=== PATIENT | male | born 1945 | race Caucasian/White ===

== ENCOUNTER 2017-08-08 13:57 | Inpatient (IN) ==
[2017-08-08 14:55] LABS: MANUAL DIFF NEEDED? NO
[2017-08-08 15:06] LABS: BASO% 0.2 % (0.0-0.8); EOS% 1.7 % (0.0-10.0); HEMATOCRIT 40.4 % (42.0-52.0); HEMOGLOBIN 13.5 g/dL (14.0-18.0); LYMPH% 17.1 % (20.5-51.1); MCH 29.9 PG (27-31); MCHC 33.4 g/dL (33-37); MCV 89.4 FL (81-99); MONO# 0.89 X1000 (0.11-0.59); MONO% 15.2 % (1.7-9.3); MPV 11.4 FL (7.4-10.4); NEUT% 65.8 % (42.2-75.2); PLT 154 X1000 (130-400); RBC 4.52 XMIL (4.7-6.1)
[2017-08-08 15:26] LABS: AGAP 14; ALBUMIN 3.6 g/dL (3.5-5.0); ALKALINE PHOSPHATASE 63 U/L (32-122); AMYLASE 111 U/L (20-200); BUN 12 mg/dL (8-22); CALCIUM 8.9 mg/dL (8.8-10.2); CHLORIDE 94 mmol/L (98-107); COSMO 263; GOT 18 U/L (10-34); GPT 16 U/L (10-44); LIPASE 72 U/L (13-60); POTASSIUM 4.4 mmol/L (3.5-5.1); SODIUM 131 mmol/L (136-145); TCO2 23 mmol/L (25-35); TOTAL BILIRUBIN 0.37 mg/dL (0.20-1.00); TOTAL PROTEIN 6.7 g/dL (6.3-8.3)
--- NOTE | 2017-08-08 15:51 | Diag Imaging Result Doc PS360 ---
CT ABDOMEN/PELVIS W/O CONTRAST - 08/08/2017 INDICATION: abd pain TECHNIQUE: A CT dose reduction protocol was used. COMPARISON: None FINDINGS: There is some multifocal linear atelectasis in the lung bases. Heart size is borderline. There are several scattered small cysts of varying density in the kidneys bilaterally, mostly simple fluid densities. No radiodense renal stones. No hydronephrosis or hydroureter. There are cholecystectomy clips. There are also extensive surgical suture lines of small bowel in the lower abdomen. There is advanced peripheral vascular disease of the arteries of the pelvis and thighs. Urinary bladder, prostate, and rectum are normal. No bowel obstruction or inflammation. No free air or free fluid. There are age-indeterminate compression fractures in the spine. This involves T12 and L4, with about 50% loss of height at these levels. IMPRESSION: No specific acute disease. Electronically signed by Lonnie Bailey 08/08/2017 3:48 PM
[2017-08-08 16:11] LABS: URINE CULTURE NEEDED? NO; URINE MICRO REVIEW NEEDED? NO; URINE SOURCE CATH
[2017-08-08 16:18] LABS: BILIRUBIN URINE NEGATIVE (NEGATIVE); BLOOD URINE NEGATIVE (NEGATIVE); COLOR YELLOW; GLUCOSE URINE NEGATIVE (NEGATIVE); LEUKOCYTES URINE NEGATIVE (NEGATIVE); NITRITE URINE NEGATIVE (NEGATIVE); PH URINE 6.5; PROTEIN URINE 30 mg/dL (NEGATIVE); SP GRAVITY URINE 1.014; TURBIDITY URINE CLEAR (CLEAR); UROBILINOGEN URINE NORMAL (NORMAL)
[2017-08-08 16:20] LABS: UR EPITHELIAL CELLS <10 /HPF (<10); URINE BACTERIA NEGATIVE /HPF; URINE RBC <10 /HPF (<10); URINE WBC <10 /HPF (<10)
--- NOTE | 2017-08-08 16:34 | Diag Imaging Result Doc PS360 ---
CHEST-2 VIEWS - 08/08/2017 INDICATION: Possible CHF TECHNIQUE: COMPARISON: 05/11/2016 FINDINGS: Stable cardiomegaly. Pulmonary vascularity is top normal. There is some stable bibasilar atelectasis right greater than left. No focal infiltrates, pneumothorax, or pleural effusion. IMPRESSION: Cardiomegaly. No acute disease. Electronically signed by Lonnie Bailey 08/08/2017 4:31 PM
[2017-08-08] MEDS ORDERED: LASIX IV ONE (17:18)
[2017-08-08] MEDS ORDERED: TYLENOL PO PRN (20:32)
[2017-08-08] MEDS ORDERED: PNEUMOVAX 23 IM ONE (22:26)
[2017-08-09] MEDS ORDERED: LOPRESSOR PO ONE (05:26)
[2017-08-09] MEDS ORDERED: LANOXIN PO ONE (05:26)
[2017-08-09 06:40] LABS: MANUAL DIFF NEEDED? NO
[2017-08-09 06:52] LABS: BASO% 0.2 % (0.0-0.8); EOS# 0.19 X1000 (0.0-0.7); EOS% 2.1 % (0.0-10.0); HEMATOCRIT 44.6 % (42.0-52.0); HEMOGLOBIN 14.6 g/dL (14.0-18.0); IMM GRAN# 0.02 X1000 (0.0-0.04); IMM GRAN% 0.2 % (0.0-0.5); LYMPH# 1.49 X1000 (1.2-3.4); LYMPH% 16.4 % (20.5-51.1); MCH 29.2 PG (27-31); MCHC 32.7 g/dL (33-37); MCV 89.2 FL (81-99); MONO# 1.39 X1000 (0.11-0.59); MONO% 15.3 % (1.7-9.3); MPV 11.4 FL (7.4-10.4); NEUT% 65.8 % (42.2-75.2); PLT 156 X1000 (130-400)
[2017-08-09 07:02] LABS: AGAP 16; BUN 15 mg/dL (8-22); CALCIUM 9.4 mg/dL (8.8-10.2); CHLORIDE 92 mmol/L (98-107); COSMO 275; POTASSIUM 3.6 mmol/L (3.5-5.1); SODIUM 137 mmol/L (136-145); TCO2 29 mmol/L (25-35)
[2017-08-09] MEDS ORDERED: ELIQUIS PO SCH (09:00)
[2017-08-09] MEDS: PRILOSEC PO SCH (10:00)
[2017-08-09] MEDS: CARAFATE LIQUID PO SCH ×3 (10:00→22:20)
[2017-08-09] MEDS: LASIX PO SCH (10:00)
[2017-08-09] MEDS: SYNTHROID PO SCH (10:00)
[2017-08-09] MEDS: FLOMAX PO SCH (10:00)
[2017-08-09] MEDS: AZULFIDINE PO SCH ×3 (10:01→22:20)
[2017-08-09] MEDS ORDERED: NS 500 ML IV ONE (10:17)
[2017-08-09] MEDS: HUMULIN R SUBQ SCH ×3 (12:52→22:21)
[2017-08-09] MEDS ORDERED: CITRATE OF MAGNESIA PO ONE ×3 (18:02→22:45)
[2017-08-09] MEDS: LOPRESSOR PO SCH (22:20)
[2017-08-09] MEDS: LANOXIN PO SCH (22:20)
[2017-08-10] MEDS: AZULFIDINE PO SCH ×4 (03:35→23:13)
[2017-08-10] MEDS: CARAFATE LIQUID PO SCH ×4 (03:35→23:13)
[2017-08-10] MEDS: HUMULIN R SUBQ SCH ×4 (06:13→23:20)
[2017-08-10] MEDS: PRILOSEC PO SCH (06:14)
[2017-08-10] MEDS: SYNTHROID PO SCH ×2 (06:14→06:15)
[2017-08-10 07:30] LABS: AGAP 18; BUN 15 mg/dL (8-22); CALCIUM 10.2 mg/dL (8.8-10.2); CHLORIDE 87 mmol/L (98-107); COSMO 271; POTASSIUM 3.8 mmol/L (3.5-5.1); SODIUM 134 mmol/L (136-145); TCO2 29 mmol/L (25-35)
[2017-08-10] MEDS ORDERED: DIPRIVAN 1% ONE (08:29)
[2017-08-10] MEDS ORDERED: XYLOCAINE-MPF 2% ONE (08:29)
[2017-08-10] MEDS: LASIX PO SCH (08:36)
[2017-08-10] MEDS: FLOMAX PO SCH (08:36)
[2017-08-10] MEDS: LOPRESSOR PO SCH ×2 (08:36→23:13)
[2017-08-10] MEDS: LANOXIN PO SCH (08:37)
[2017-08-10] MEDS: ZOFRAN IV PRN (17:27)
[2017-08-10] MEDS: MIRALAX PO SCH (23:13)
[2017-08-11] MEDS: AZULFIDINE PO SCH ×5 (03:35→21:45)
[2017-08-11] MEDS: ZOFRAN IV PRN ×2 (03:35→07:58)
[2017-08-11] MEDS: CARAFATE LIQUID PO SCH ×5 (03:35→21:45)
[2017-08-11] MEDS ORDERED: NS 1,000 ML IV SCH (04:06)
--- NOTE | 2017-08-11 06:25 | EKG Report ---
Test Performed on : 08/08/2017 1:58:09 PM Test Reason : reordered/hx afib Blood Pressure : / mmHG Vent. Rate : 079 BPM Atrial Rate : 052 BPM P-R Int : 000 ms QRS Dur : 096 ms QT Int : 350 ms P-R-T Axes : 000 -51 070 degrees QTc Int : 401 ms Atrial fibrillation. Left anterior fascicular block Abnormal ECG When compared with ECG of 18-JUL-2017 18:27, No significant change was found Unconfirmed Result
[2017-08-11] MEDS: PRILOSEC PO SCH (06:40)
[2017-08-11] MEDS: SYNTHROID PO SCH (06:40)
[2017-08-11] MEDS: HUMULIN R SUBQ SCH ×4 (06:41→22:33)
[2017-08-11 07:02] LABS: EOS# 0.02 X1000 (0.0-0.7); EOS% 0.1 % (0.0-10.0); HEMATOCRIT 44.1 % (42.0-52.0); HEMOGLOBIN 14.8 g/dL (14.0-18.0); IMM GRAN# 0.03 X1000 (0.0-0.04); IMM GRAN% 0.2 % (0.0-0.5); LYMPH# 0.54 X1000 (1.2-3.4); LYMPH% 3.5 % (20.5-51.1); MANUAL DIFF NEEDED? YES; MCH 29.7 PG (27-31); MCHC 33.6 g/dL (33-37); MCV 88.4 FL (81-99); MONO# 1.52 X1000 (0.11-0.59); MONO% 9.7 % (1.7-9.3); MPV 11.5 FL (7.4-10.4); NEUT% 86.5 % (42.2-75.2); PLT 203 X1000 (130-400); RBC 4.99 XMIL (4.7-6.1)
[2017-08-11 07:48] LABS: BANDS 4 % (0-1); LYMPHS 10 % (21-51); MONO 4 % (1-9)
[2017-08-11 07:56] LABS: AGAP 18; BUN 30 mg/dL (8-22); CALCIUM 9.4 mg/dL (8.8-10.2); CHLORIDE 82 mmol/L (98-107); COSMO 274; POTASSIUM 4.2 mmol/L (3.5-5.1); SODIUM 132 mmol/L (136-145); TCO2 32 mmol/L (25-35)
[2017-08-11] MEDS: FLOMAX PO SCH (08:57)
[2017-08-11] MEDS: LASIX PO SCH (08:57)
[2017-08-11] MEDS: LANOXIN PO SCH (08:58)
[2017-08-11] MEDS: LOPRESSOR PO SCH ×2 (08:58→22:35)
[2017-08-11] MEDS: MIRALAX PO SCH ×2 (08:58→21:33)
--- NOTE | 2017-08-11 10:25 | Diag Imaging Result Doc PS360 ---
EXAM: ABDOMEN FLAT/UPRIGHT INDICATION: vomiting TECHNIQUE: 3 views COMPARISON: None. FINDINGS: There is a metallic bowel staple line is noted. There are multiple distended loops of bowel containing gas. Bowel obstruction cannot be excluded in the right clinical scenario. There is no evidence of large volume free abdominal gas. Cholecystectomy clips are noted. IMPRESSION: Gaseous distention of multiple bowel loops. Bowel obstruction cannot be excluded. Electronically signed by Good Eugene 08/11/2017 10:23 AM
[2017-08-11] MEDS: NS 1,000 ML IV SCH ×2 (10:45→16:37)
[2017-08-11] MEDS: REGLAN IV SCH ×3 (11:02→23:44)
[2017-08-11] MEDS ORDERED: DULCOLAX PR ONE (11:40)
[2017-08-11] MEDS ORDERED: FLEET ENEMA PR SCH (11:45)
[2017-08-11] MEDS: KEFZOL 1 GM/D5W 1 GM/50 ML IVPB IV SCH ×2 (12:49→20:02)
[2017-08-11] MEDS ORDERED: CALMOSEPTINE OINTMENT TOP PRN (19:46)
[2017-08-11] MEDS ORDERED: HEPARIN SUBQ SCH (21:00)
[2017-08-11] MEDS: FLEET ENEMA PR SCH (22:32)
[2017-08-12] MEDS: NS 1,000 ML IV SCH ×3 (02:53→17:20)
[2017-08-12] MEDS: CARAFATE LIQUID PO SCH ×4 (03:16→20:08)
[2017-08-12] MEDS: AZULFIDINE PO SCH ×4 (03:16→20:08)
[2017-08-12] MEDS: REGLAN IV SCH (05:20)
[2017-08-12] MEDS: KEFZOL 1 GM/D5W 1 GM/50 ML IVPB IV SCH ×3 (05:21→20:07)
[2017-08-12 06:10] LABS: MANUAL DIFF NEEDED? NO
[2017-08-12 06:14] LABS: BASO% 0.1 % (0.0-0.8); EOS# 0.11 X1000 (0.0-0.7); EOS% 0.8 % (0.0-10.0); HEMATOCRIT 40.1 % (42.0-52.0); LYMPH# 1.13 X1000 (1.2-3.4); LYMPH% 8.2 % (20.5-51.1); MCH 29.4 PG (27-31); MCHC 32.4 g/dL (33-37); MCV 90.7 FL (81-99); MONO# 2.19 X1000 (0.11-0.59); MONO% 15.9 % (1.7-9.3); MPV 11.4 FL (7.4-10.4); PLT 167 X1000 (130-400); RBC 4.42 XMIL (4.7-6.1)
[2017-08-12] MEDS: HUMULIN R SUBQ SCH ×4 (06:21→20:16)
[2017-08-12] MEDS: SYNTHROID PO SCH (06:22)
[2017-08-12] MEDS: PRILOSEC PO SCH (06:22)
[2017-08-12 06:30] LABS: AGAP 11; BUN 25 mg/dL (8-22); CALCIUM 8.2 mg/dL (8.8-10.2); CHLORIDE 96 mmol/L (98-107); COSMO 278; POTASSIUM 3.9 mmol/L (3.5-5.1); SODIUM 136 mmol/L (136-145); TCO2 29 mmol/L (25-35)
--- NOTE | 2017-08-12 08:49 | Diag Imaging Result Doc PS360 ---
EXAM: FLAT/UPRIGHT ABD/1 VIEW CHEST HISTORY: Partial obstruction TECHNIQUE: Three views COMPARISON: 08/11/2017 FINDINGS: The lungs are well expanded. No consolidation. No free air beneath the diaphragm. The gallbladder has been removed. There are sutures in the mid abdomen. There is air in the small bowel and colon. The bowel loops are less distended on the current exam. Mild scoliosis. IMPRESSION: Mild interval improvement. Electronically signed by Walter Mcclellan 08/12/2017 8:46 AM
[2017-08-12] MEDS: FLOMAX PO SCH (08:50)
[2017-08-12] MEDS: LANOXIN PO SCH (08:50)
[2017-08-12] MEDS: LASIX PO SCH (08:50)
[2017-08-12] MEDS: LOPRESSOR PO SCH ×2 (08:51→20:08)
[2017-08-12] MEDS: MIRALAX PO SCH (08:58)
[2017-08-12] MEDS: REGLAN PO SCH (20:08)
[2017-08-12] MEDS: FLEET ENEMA PR SCH (20:15)
[2017-08-12 22:46] LABS: CELIAC DISEASE PROFILE SEE COMMENTS; TISSUE TRANSGLUTAMINASE IGA SEE COMMENTS
[2017-08-13] MEDS: CARAFATE LIQUID PO SCH ×3 (03:00→15:16)
[2017-08-13] MEDS: AZULFIDINE PO SCH ×3 (03:00→15:16)
[2017-08-13] MEDS: FLEET ENEMA PR SCH (03:04)
[2017-08-13] MEDS: NS 1,000 ML IV SCH ×2 (04:43→13:51)
[2017-08-13] MEDS: KEFZOL 1 GM/D5W 1 GM/50 ML IVPB IV SCH ×2 (04:43→13:51)
[2017-08-13] MEDS: HUMULIN R SUBQ SCH ×2 (06:03→13:37)
[2017-08-13] MEDS: PRILOSEC PO SCH (06:04)
[2017-08-13] MEDS: SYNTHROID PO SCH (06:05)
[2017-08-13 06:49] LABS: AGAP 7; BUN 13 mg/dL (8-22); CALCIUM 7.6 mg/dL (8.8-10.2); CHLORIDE 98 mmol/L (98-107); COSMO 269; POTASSIUM 3.3 mmol/L (3.5-5.1); SODIUM 134 mmol/L (136-145); TCO2 29 mmol/L (25-35)
[2017-08-13] MEDS ORDERED: KLOR-CON PO ONE (07:51)
[2017-08-13] MEDS: LOPRESSOR PO SCH (08:18)
[2017-08-13] MEDS: MIRALAX PO SCH (08:18)
[2017-08-13] MEDS: REGLAN PO SCH (08:18)
[2017-08-13] MEDS: LANOXIN PO SCH (08:18)
[2017-08-13] MEDS: LASIX PO SCH (08:18)
[2017-08-13] MEDS: FLOMAX PO SCH (08:18)
[2017-08-13] MEDS ORDERED: FLUZONE QUAD 2017-2018 SYRINGE IM ONE (12:47)
[2017-08-13 14:04] VITALS: BP 101/61
== END 2017-08-13 16:31 ==
LOC: ED 13:57 → SUATTDRO 20:44 → 3N 20:44
PROVIDERS: ATTEND Internal Medicine

== ENCOUNTER 2018-12-09 17:42 | Inpatient (IN) ==
--- NOTE | 2018-12-09 19:18 | Diag Imaging Result Doc PS360 ---
EXAM: XRAY HIP W/PELVIS BILAT 3-4VWS INDICATION: fall TECHNIQUE: 5 views COMPARISON: None. FINDINGS: There is no discrete fracture, dislocation, or significant intrinsic osseous lesion. The hip joint spaces are preserved. There is atherosclerotic calcification at the thighs. IMPRESSION: No evidence of acute osseous abnormality. Electronically signed by Good Eugene 12/09/2018 7:16 PM
--- NOTE | 2018-12-09 19:32 | PROVIDER DOCUMENTATION ---
HPI-Musculoskeletal Pain/Inj - GENERAL Chief Complaint: Fall Stated Complaint: FALL Time Seen by Provider: 12/09/18 18:13 Source: patient - HX OF PRESENT ILLNESS-MUSKULOSKELTAL Nature of Presenting Problem: Patient is a 73 yowm who [facility]. Pt states that he fell out of bed and landed on buttocks. He complains of lower back pain. Denies head injury. Staff at [facility] reports mental status change since fall, pt is a&o and answering questions appropriately. Neurologically intact at this time. Quality of Pain: reports: aching Onset/Duration: just prior to arrival Timing: still present Modifying Factors: improves with: nothing Any recent injury?: Yes Locality of Occurance: Home - FALL INJURY Location of Pain/Injury: reports: back Pain Radiation: reports: no radiation Reason for Fall: reports: slipped Symptoms prior to fall:: reports: none Loss of Consciousness: no loss of consciousness - BACK & NECK PAIN/INJURY Back/Neck Pain Location: reports: lumbar spine, sacrum Review of Systems - Adult - REVIEW OF SYSTEMS - ADULT Constitutional: reports: no symptoms reported Eyes: reports: no symptoms reported Ears, Nose, Mouth & Throat: reports: no symptoms reported Cardiovascular: reports: no symptoms reported Respiratory: reports: no symptoms reported Gastrointestinal: reports: no symptoms reported Genitourinary: reports: no symptoms reported Musculoskeletal: reports: back pain Integumentary: reports: no symptoms reported Neurological: reports: no symptoms reported Psychiatric: reports: no symptoms reported Endocrine: reports: no symptoms reported Hematologic/Lymphatic: reports: no symptoms reported Allergic/Immunologic: reports: no symptoms reported All Other Systems: Reviewed and Negative Past History - Adult - PAST MEDICAL HISTORY-ADULT Review of Records: reports: Old Records Reviewed, Nursing Assessment Review, Medications Reviewed, Social history reviewed & non-contributory. Cardiovascular: reports: A-Fib, HTN, hyperlipidemia Respiratory: reports: denies history Gastrointestinal: reports: cancer (colorectal), Crohn's Genitourinary: reports: other (BPH) Musculoskeletal: reports: denies history Neurological: reports: dementia Psychiatric: reports: denies history Endocrine/Immune: reports: thyroid disorder - PRIOR SURGERIES/PROCEDURES Surgical/Procedure History: reports: reviewed, not pertinent, other (Colon surgery.) - IMMUNIZATION STATUS Childhood Immunizations: See Nurse Assessment Flu Vaccine: See Nurse Assessment - FAMILY HISTORY Family History: reviewed, not pertinent - SOCIAL HISTORY Smoking: denies Physical Exam-Injury Related - Physical Exam-Injury Related Initial Vital Signs Reviewed: Yes General Appearance: alert, no apparent distress. negative: lethargic, slow to respond Eyes: PERRL/EOMI, pink conjunctivae. negative: anisocoria Head, Ears, Nose, Mouth & Throat: normocephalic/atraumatic, moist mucous membranes, normal ENT inspection, TMs normal Neck: non-tender, full range of motion, supple, normal inspection Respiratory: chest non-tender, lungs clear, normal breath sounds, no pleuratic chest pain, no respiratory distress, no accessory muscle use Cardiovascular: normal peripheral pulses, regular rate, rhythm, no gallop, no murmur Abdominal Exam: normal bowel sounds, non tender, soft Male Genitalia: deferred Rectal Exam: deferred Hemoccult Exam: deferred Back Exam: lordosis, vertebral tenderness (Lumbar spine). negative: ecchymosis Extremity: normal range of motion, non-tender, normal inspection, pelvis stable . negative: deformity, erythema, inflammation, joint effusion Integumentary: normal color, warm/dry. negative: diaphoresis, ecchymosis, jaundice, mottled, pallor Neurologic: grossly normal, no motor/sensory deficits Psych/Mental Status: normal mood/affect, normal thought content, normal thought process, oriented x 3 - Glascow Coma Score Best Eye Response (Gordo): (4) open spontaneously Best Verbal Response (Gordo): (5) oriented Best Motor Response (Gordo): (6) obeys commands Progress - PLAN OF CARE/RESULTS Progress/Plan/Lab Results: Vital Signs - 8 hr 12/09/18 18:45 12/09/18 21:32 12/09/18 21:33 Temperature 99.9 F H Pulse Rate 96 H 102 H 96 H Respiratory Rate 20 Blood Pressure 140/88 153/74 O2 Sat by Pulse Oximetry 96 94 L 90 L 12/09/18 21:40 12/09/18 21:50 12/09/18 22:00 Temperature Pulse Rate 100 H 94 H 104 H Respiratory Rate Blood Pressure O2 Sat by Pulse Oximetry 89 L 90 L 90 L 12/09/18 22:02 12/09/18 22:10 12/09/18 22:29 Temperature Pulse Rate 104 H 101 H 117 H Respiratory Rate 27 H Blood Pressure 144/91 O2 Sat by Pulse Oximetry 90 L 91 L 90 L 12/09/18 22:30 12/09/18 22:40 12/09/18 22:50 Temperature Pulse Rate 102 H 102 H 96 H Respiratory Rate 23 23 Blood Pressure O2 Sat by Pulse Oximetry 92 L 92 L 93 L 12/09/18 23:00 12/09/18 23:10 12/09/18 23:20 Temperature Pulse Rate 98 H 109 H 107 H Respiratory Rate 23 31 H 25 H Blood Pressure O2 Sat by Pulse Oximetry 93 L 95 94 L 12/09/18 23:30 12/09/18 23:40 12/09/18 23:42 Temperature 99.7 F H Pulse Rate 102 H 108 H Respiratory Rate 25 H 27 H Blood Pressure O2 Sat by Pulse Oximetry 93 L 93 L 12/09/18 23:50 12/10/18 00:00 12/10/18 00:10 Temperature Pulse Rate 107 H 125 H 117 H Respiratory Rate 26 H 28 H Blood Pressure O2 Sat by Pulse Oximetry 93 L 94 L 93 L 12/10/18 00:28 12/10/18 00:30 12/10/18 00:40 Temperature Pulse Rate 101 H 113 H 102 H Respiratory Rate 19 29 H 26 H Blood Pressure O2 Sat by Pulse Oximetry 90 L 92 L 92 L 12/10/18 00:50 12/10/18 01:00 12/10/18 01:10 Temperature Pulse Rate 111 H 111 H 108 H Respiratory Rate 24 23 20 Blood Pressure O2 Sat by Pulse Oximetry 93 L 92 L 94 L Laboratory Results - last 24 hr 12/09/18 12/09/18 12/09/18 21:15 21:15 21:15 WBC 7.27 RBC 4.52 L Hgb 12.2 L Hct 38.1 L MCV 84.3 MCH 27.0 MCHC 32.0 L RDW Std Deviation 14.4 Plt Count 143 MPV 10.6 H Immature Gran % (Auto) 0.3 Neut % (Auto) 65.6 Lymph % (Auto) 16.5 L Long % (Auto) 17.1 H Eos % (Auto) 0.4 Baso % (Auto) 0.1 Immature Gran # (Auto) 0.02 Neut # (Auto) 4.77 Lymph # (Auto) 1.20 Long # (Auto) 1.24 H Eos # (Auto) 0.03 Baso # (Auto) 0.01 Specimen Type Sample Site pH pCO2 pO2 HCO3 Base Excess Oxyhemoglobin ABG O2 Sat (Calculated) ABG O2 Saturation ABG Carboxyhemoglobin ABG Methemoglobin Cain Test A-a O2 Difference Total Hemoglobin Lactate Liter Flow Blood Gas Modality FiO2 % Sodium 134 L Potassium 3.6 Chloride 92 L Carbon Dioxide 28 Anion Gap 14 BUN 12 Creatinine 0.7 Estimated GFR/1.73 m2 > 60 BUN/Creatinine Ratio 17 Glucose 127 H Calculated Osmolality 270 Calcium 8.5 L Total Bilirubin 0.34 AST 17 ALT 10 Alkaline Phosphatase 70 Troponin T < 0.010 Total Protein 6.7 Albumin 3.5 Globulin 3.2 Albumin/Globulin Ratio 1.1 Urine Source Urine Color Urine Turbidity Urine pH Ur Specific Garnett Urine Protein Ur Glucose (Stick) Ur Ketones (Stick) Urine Blood Urine Nitrite Urine Bilirubin Urobilinogen Dipstick Urine Leukocytes Urine WBC (Auto) Urine RBC (Auto) U Epithel Cells (Auto) Urine Bacteria (Auto) 12/10/18 12/10/18 01:11 01:28 WBC RBC Hgb Hct MCV MCH MCHC RDW Std Deviation Plt Count MPV Immature Gran % (Auto) Neut % (Auto) Lymph % (Auto) Long % (Auto) Eos % (Auto) Baso % (Auto) Immature Gran # (Auto) Neut # (Auto) Lymph # (Auto) Long # (Auto) Eos # (Auto) Baso # (Auto) Specimen Type ARTERIAL Sample Site L RADIAL pH 7.51 H pCO2 37 pO2 81 HCO3 29.7 H Base Excess 6.2 H Oxyhemoglobin 93.4 L ABG O2 Sat (Calculated) 15.2 ABG O2 Saturation 97.5 ABG Carboxyhemoglobin 3.00 H ABG Methemoglobin 1.2 Cain Test YES A-a O2 Difference 158.0 Total Hemoglobin 11.5 Lactate 0.90 Liter Flow 5.0 Blood Gas Modality CANNULA FiO2 % 40.0 Sodium Potassium Chloride Carbon Dioxide Anion Gap BUN Creatinine Estimated GFR/1.73 m2 BUN/Creatinine Ratio Glucose Calculated Osmolality Calcium Total Bilirubin AST ALT Alkaline Phosphatase Troponin T Total Protein Albumin Globulin Albumin/Globulin Ratio Urine Source CLEAN CATCH Urine Color YELLOW Urine Turbidity CLEAR Urine pH 6.0 Ur Specific Garnett 1.023 Urine Protein 300 A Ur Glucose (Stick) NEGATIVE Ur Ketones (Stick) NEGATIVE Urine Blood SMALL A Urine Nitrite NEGATIVE Urine Bilirubin NEGATIVE Urobilinogen Dipstick NORMAL Urine Leukocytes NEGATIVE Urine WBC (Auto) <10 Urine RBC (Auto) <10 U Epithel Cells (Auto) <10 Urine Bacteria (Auto) NEGATIVE Orders Category Date Time Status Cardiac Monitoring DIRECTED Care 12/09/18 22:55 Active Neurological Check ORDERED Care 12/09/18 22:55 Active Saline Loc NOW Care 12/09/18 20:37 Active Straight Catheterization ORDERED Care 12/10/18 01:12 Active CHEST-2 VIEWS [RAD] Stat Exams 12/09/18 22:[address] HEAD W/O CONTRAST [CT] Stat Exams 12/10/18 00:[address] HEAD/C-SPINE W/O CONTRAST [CT] Stat Exams 12/09/18 18:[address] LUMBAR SPINE W/O CONTRAST [CT] Stat Exams 12/09/18 18:44 Completed XRAY HIP W/PELVIS BILAT 3-4VWS [RAD] Stat Exams 12/09/18 18:52 Completed ABG [RESP] Routine Lab 12/10/18 01:28 Completed CBC WITH DIFF [HEME] Stat Lab 12/09/18 21:15 Completed COMPREHENSIVE METABOLIC PANEL [CHEM] Stat Lab 12/09/18 21:15 Completed INFLUENZA SCREEN A/B Routine Lab 12/10/18 01:25 Received PROTIME WITH INR [COAG] Urgent Lab 12/10/18 01:27 Ordered PTT [COAG] Urgent Lab 12/10/18 01:27 Ordered TROPONIN T Stat Lab 12/09/18 21:15 Completed UA NIMS W/REFLEX CULT [URINALYSIS] Stat Lab 12/10/18 01:11 Completed 0.9% Sodium Chloride Inj [Ns] 1,000 ml Med 12/10/18 01:28 Active IV 70 mls/hr CefTRIAXONE [Rocephin] 1 gm Med 12/10/18 01:30 Active 0.9% Sodium Chloride Inj [Ns] 50 ml IV Q24H EKG [EKG] Stat Ther 12/09/18 20:37 Ordered Transfer/Admit Order [TRANSFER] Routine Transfer 12/10/18 01:[address] Renner regarding pt case. reviewed patient's head CT and recommends either admitting pt for additional imaging in 6-8 hours or holding pt in ED for additional imaging. Will call [facility] after lab work results. Anemia stable as compared to prior results. Dr. Mathews paged regarding admission. Spoke with Dr. Mathews who recommends repeat head CT [place] [address]30. Dr. Mathews evaluated pt. Spoke with Dr. Mathews regarding repeat head CT. Md states he will admit pt. Dr. Mathews reviewed patient's chest x ray and is aware of patient's low 02 sats. Result Diagrams: 12/09/18 21:15 12/09/18 21:15 - XRAY 1 XRAY Study: Chest (Questionable RLL infiltrate. Over read performed by Dr. Renner.) - CT/MRI 1 CT Study: Lumbar Spine ([facility] [address] , [address], [place] [address] Department of Imaging Patient: KAYLEIGH MOSQUEDA Date : 12/09/18#: [id number] : 1945DM Status: REG ERAcct#: [id number] Age/Sex: 73/MRoom/Bed: Loc: ED Ordering Physician: Janny Durbin Family Physician: Erik Fontenot Reason for Procedure: fall, lower back pain ___ Signed EXAM: CT LUMBAR SPINE W/O CONTRAST INDICATION: fall, lower back pain TECHNIQUE: This exam was performed using automated exposure control, adjustment of mA or kV according to patient size, and/or use of iterative reconstruction technique. COMPARISON: None. FINDINGS: There is a chronic compression deformity at L4. There is multilevel mild to moderate degenerative disc disease. This is most significant at L3-4 and L4-5 where there is at least moderate central canal narrowing. Otherwise, there is no discrete fracture, subluxation, or significant intrinsic osseous lesion. The surrounding soft tissues are essentially unremarkable. IMPRESSION: Chronic appearing changes as described. No evidence of acute fracture or other definite acute L-spine injury. Electronically signed by Good Eugene 12/09/2018 7:54 PM 12/09/181953 Interpreting Physician: Good Eugene MD Dictated Date/Time: 12/09/181951 cc: Janny Durbin; Erik Fontenot) 2 CT Study: Head, Neck ([facility] [address] , [address], [place] [id number] Department of Imaging Patient: KAYLEIGH MOSQUEDA Date : 12/09/18#: [id number] : 1945DM Status: [facility]#: [id number] Age/Sex: 73/MRoom/Bed: Loc: ED Ordering Physician: Janny Durbin Family Physician: Erik Fontenot Reason for Procedure: fall Signed * EXAM: CT HEAD/C-SPINE W/O CONTRAST INDICATION: fall TECHNIQUE: This exam was performed using automated exposure control, adjustment of mA or kV according to patient size, and/or use of iterative reconstruction technique. COMPARISON: None. FINDINGS: Head: There is diffuse brain atrophy. There is patchy low attenuation in the periventricular and subcortical white matter suggesting moderate microangiopathy. There is nonspecific mild focal dural thickening involving the inner table of the skull overlying the right frontal lobe on image 29 of series 2. It measures approximately 2.1 x 0.5 cm. Although it has a vaguely lentiform shape, it is unlikely to represent an acute epidural hematoma given its lower density. However, there are no prior studies available for comparison. There is no definite acute infarct given the limited sensitivity of CT versus MRI. There is no discrete intracranial mass, mass effect, or definite intracranial hemorrhage, otherwise. There is a craniotomy defect overlying the right hemisphere. There is extensive pansinusitis. C- spine: There is multilevel mild to moderate degenerative disc disease with mild loss of disc space height and small marginal osteophyte formation. This causing mild foraminal and milder central canal narrowing at several levels. Otherwise, there is no discrete fracture, subluxation, or intrinsic osseous lesion. The surrounding soft tissues are essentially unremarkable. IMPRESSION: 1.Nonspecific focal dural thickening overlying the right frontal lobe. Please see above discussion. 2.Other chronic appearing intracranial changes. No definite acute intracranial pathology. 3.Advanced paranasal sinusitis. 4.Multilevel degenerative changes but no evidence of fracture or other definite acute C-spine injury. Electronically signed by Good Eugene 12/09/2018 7:52 PM 12/09/181951 Interpreting Physician: Good Eugene MD Dictated Date/Time: 12/09/181936 cc: Janny Durbin; Erik Fontenot) 3 CT Study: Head (Impression: 1. No acute intracrania hemorrhage or process. 2. Age-related cerebral volume loss. Bilateral white matter disease, likely ischemic microvascular in nature. 3. Small extra-axial area of intermediate density in the right frontal region is stable since 12/09/2018.) Departure - Departure Date of Disposition Decision: 12/10/18 Time of Disposition Decision: 01:40 DIAGNOSIS: Altered mental status Qualifiers: Altered mental status type: unspecified Qualified Code(s): R41.82 - Altered mental status, unspecified RLL pneumonia Qualifiers: Pneumonia type: due to unspecified organism Qualified Code(s): J18.1 - Lobar pneumonia, unspecified organism Disposition: ADMITTED INPATIENT 09 Certified Medical Emergency: Emergent Condition: Stable Referrals and Follow-Ups: None,PCP [NON-STAFF PROVIDER] - - Critical Care Note This patient required my direct & personal management of CC.: No Attestation - Physician/ MILTON Attestation Patient care was provided by Advanced Practice Provider:: Yes Advanced Practice Provider:: Janny Durbin Advanced Practice Provider documentation review:: The Mid-level provider documentation, treatment plan and medical decision making was reviewed by the physician who agrees with all treatment and medical decision making by the MLP. The physician spent face to face time with patient:: No Advanced Practice Provider documentation review:: Supervising physician onsite and consulted in the evaluation and care of this patient. The physician did not have a face to face encounter with the patient.
--- NOTE | 2018-12-09 19:54 | Diag Imaging Result Doc PS360 ---
EXAM: CT HEAD/C-SPINE W/O CONTRAST INDICATION: fall TECHNIQUE: This exam was performed using automated exposure control, adjustment of mA or kV according to patient size, and/or use of iterative reconstruction technique. COMPARISON: None. FINDINGS: Head: There is diffuse brain atrophy. There is patchy low attenuation in the periventricular and subcortical white matter suggesting moderate microangiopathy. There is nonspecific mild focal dural thickening involving the inner table of the skull overlying the right frontal lobe on image 29 of series 2. It measures approximately 2.1 x 0.5 cm. Although it has a vaguely lentiform shape, it is unlikely to represent an acute epidural hematoma given its lower density. However, there are no prior studies available for comparison. There is no definite acute infarct given the limited sensitivity of CT versus MRI. There is no discrete intracranial mass, mass effect, or definite intracranial hemorrhage, otherwise. There is a craniotomy defect overlying the right hemisphere. There is extensive pansinusitis. C-spine: There is multilevel mild to moderate degenerative disc disease with mild loss of disc space height and small marginal osteophyte formation. This causing mild foraminal and milder central canal narrowing at several levels. Otherwise, there is no discrete fracture, subluxation, or intrinsic osseous lesion. The surrounding soft tissues are essentially unremarkable. IMPRESSION: 1.Nonspecific focal dural thickening overlying the right frontal lobe. Please see above discussion. 2.Other chronic appearing intracranial changes. No definite acute intracranial pathology. 3.Advanced paranasal sinusitis. 4.Multilevel degenerative changes but no evidence of fracture or other definite acute C-spine injury. Electronically signed by Good Eugene 12/09/2018 7:52 PM
--- NOTE | 2018-12-09 19:56 | Diag Imaging Result Doc PS360 ---
EXAM: CT LUMBAR SPINE W/O CONTRAST INDICATION: fall, lower back pain TECHNIQUE: This exam was performed using automated exposure control, adjustment of mA or kV according to patient size, and/or use of iterative reconstruction technique. COMPARISON: None. FINDINGS: There is a chronic compression deformity at L4. There is multilevel mild to moderate degenerative disc disease. This is most significant at L3-4 and L4-5 where there is at least moderate central canal narrowing. Otherwise, there is no discrete fracture, subluxation, or significant intrinsic osseous lesion. The surrounding soft tissues are essentially unremarkable. IMPRESSION: Chronic appearing changes as described. No evidence of acute fracture or other definite acute L-spine injury. Electronically signed by Good Eugene 12/09/2018 7:54 PM
[2018-12-09 21:30] LABS: BASO# 0.01 X1000 (0.0-0.2); BASO% 0.1 % (0.0-0.8); EOS# 0.03 X1000 (0.0-0.7); EOS% 0.4 % (0.0-10.0); HEMATOCRIT 38.1 % (42.0-52.0); HEMOGLOBIN 12.2 g/dL (14.0-18.0); IMM GRAN# 0.02 X1000 (0.0-0.04); IMM GRAN% 0.3 % (0.0-0.5); LYMPH% 16.5 % (20.5-51.1); MCV 84.3 FL (81-99); MONO# 1.24 X1000 (0.11-0.59); MONO% 17.1 % (1.7-9.3); MPV 10.6 FL (7.4-10.4); NEUT# 4.77 X1000 (1.4-6.5); NEUT% 65.6 % (42.2-75.2); PLT 143 X1000 (130-400); RBC 4.52 XMIL (4.7-6.1); RDW 14.4 % (11.5-14.5); WBC 7.27 X1000 (4.8-10.8)
[2018-12-09 21:50] LABS: AGAP 14; ALB/GLOB RATIO 1.1; ALBUMIN 3.5 g/dL (3.5-5.0); ALKALINE PHOSPHATASE 70 U/L (32-122); BUN 12 mg/dL (8-22); CALCIUM 8.5 mg/dL (8.8-10.2); CHLORIDE 92 mmol/L (98-107); COSMO 270; CREATININE 0.7 mg/dL (0.7-1.2); ESTIMATED GFR > 60; GLUCOSE 127 mg/dL (70-104); GOT 17 U/L (10-34); GPT 10 U/L (10-44); POTASSIUM 3.6 mmol/L (3.5-5.1); SODIUM 134 mmol/L (136-145); TCO2 28 mmol/L (25-35); TOTAL BILIRUBIN 0.34 mg/dL (0.20-1.00); TOTAL PROTEIN 6.7 g/dL (6.3-8.3)
[2018-12-10 01:21] LABS: URINE SOURCE CLEAN CATCH
[2018-12-10 01:27] LABS: BILIRUBIN URINE NEGATIVE (NEGATIVE); BLOOD URINE SMALL (NEGATIVE); COLOR YELLOW; GLUCOSE URINE NEGATIVE (NEGATIVE); KETONE URINE NEGATIVE (NEGATIVE); LEUKOCYTES URINE NEGATIVE (NEGATIVE); NITRITE URINE NEGATIVE (NEGATIVE); PROTEIN URINE 300 mg/dL (NEGATIVE); SP GRAVITY URINE 1.023; TURBIDITY URINE CLEAR (CLEAR); UROBILINOGEN URINE NORMAL (NORMAL)
[2018-12-10 01:28] LABS: UR EPITHELIAL CELLS <10 /HPF (<10); URINE BACTERIA NEGATIVE /HPF; URINE RBC <10 /HPF (<10); URINE WBC <10 /HPF (<10)
[2018-12-10] MEDS ORDERED: NS 1,000 ML IV ONE (01:28)
[2018-12-10] MEDS ORDERED: ROCEPHIN 1 GM in NS 50 ML IV SCH (01:30)
[2018-12-10 01:38] LABS: ALLEN TEST YES; BE 6.2 mmoll (-3.0-3.0); BLOOD TYPE ARTERIAL; HCO3-(ACT) 29.7 mmoll (20.0-26.0); METHB 1.2 % (0.0-1.5); MODALITY CANNULA; O2(CT) 15.2 mL/dL (15.0-23.0); O2HB 93.4 % (95.0-99.0); PCO2(98.6) 37 mmHg (35-45); PO2(98.6) 81 mmHg (60-100); SAMPLE BLOOD; SAO2 97.5 % (95.0-100.0); THB 11.5 g/dL (11.5-17.4); pH(98.6) 7.51 (7.35-7.45)
[2018-12-10] MEDS ORDERED: ZOFRAN IV PRN (02:13)
[2018-12-10] MEDS ORDERED: TYLENOL PO PRN ×2 (02:13→02:20)
[2018-12-10] MEDS: TAMIFLU PO SCH ×3 (02:15→20:03)
[2018-12-10 02:18] LABS: INR 1.2; PROTIME 16.2 Seconds (11.0-16.0)
[2018-12-10 02:19] LABS: PTT 37.3 Seconds (22.3-41.8)
[2018-12-10] MEDS ORDERED: MILK OF MAGNESIA PO PRN (02:20)
[2018-12-10] MEDS: LOPRESSOR PO SCH ×4 (03:00→20:03)
[2018-12-10] MEDS: MAXIPIME 1 GM in NS 50 ML IV SCH ×2 (03:15→14:20)
--- NOTE | 2018-12-10 03:31 | HISTORY AND PHYSICAL ---
ADDENDUM: This is a senior care patient, 73 years old, I think presumably had some baseline dementia, a history of atrial fibrillation, Crohn's. The patient reportedly fell. There was no loss of consciousness but he fell. He reports he fell on his back end. The patient had a workup in the ER with a lumbar CT which was negative, and a head and cervical CT which was negative. However, there was a dural thickening over the right frontal lobe which raised concern over a possible epidural hematoma. Hip and pelvis x-rays were negative. The patient reportedly is more confused than baseline but we really have nothing to go by for that purpose. In any case, he has a nonfocal neurologic examination. He has some slurring of the speech and some right facial droop but nothing major so our plan is to observe him. We repeated his head CT in the ER. It did not show extension of the lesion. I discussed the case briefly with Dr. Fan who reviewed the head CT and felt that this was not an epidural hematoma. That is a neurosurgeon at [place]. We will observe him, just do an MRI tomorrow and follow. The patient is somewhat hypoxic. I think he may have a right lower lobe pneumonia so we are going to give him medications for that, gram- negative type. We will give him cefepime and vancomycin. His atrial fibrillation is not under control but I think that is just probably related to the fact that he has not gotten any medications and he has a low-grade fever. We will continue to monitor. DISPOSITION: Pending his clinical status. This is a [id number] encounter note with Haris Smith. cc: Andre Mathews MD
[2018-12-10] MEDS: XOPENEX NEB INH SCH ×4 (04:00→21:00)
[2018-12-10] MEDS ORDERED: VANCOMYCIN IV PER PHARMACY MISC SCH (06:15)
[2018-12-10] MEDS ORDERED: SYNTHROID PO SCH (07:00)
--- NOTE | 2018-12-10 07:03 | HISTORY AND PHYSICAL ---
CHIEF COMPLAINT: Fall. HISTORY OF PRESENT ILLNESS: This is a 73-year-old male who presents from the senior living following a fall. He apparently fell out of his bed and landed on his buttocks. He was having complaints of lower back pain. Denied any loss of consciousness or head injury. Staff at the senior living report a mental status change since the fall. I believe he had some baseline dementia; however, he is reportedly more altered than his baseline. During his examination, he was oriented to person, place and disoriented to time. The lumbar CT in the ER was negative. Head and cervical CT was negative; however, there was a dura thickening over the right frontal lobe which raised concern over a possible epidural hematoma. Dr. Fan at [facility] reviewed the head CT, felt it was not a hematoma. The patient was also noted to be hypoxic on the chest x-ray. He appears to have a right lower lobe infiltrate. Flu swab was also obtained which showed him to be influenza A positive. He will be admitted to the medical floor for further evaluation and treatment. PAST MEDICAL HISTORY: 1. Chronic atrial fibrillation on anticoagulation with Eliquis. 2. Hypertension. 3. Hypothyroidism. 4. Crohn's disease. 5. Gout. 6. BPH. 7. Diabetes mellitus type 2. 8. Congestive heart failure. PREVIOUS SURGICAL HISTORY: 1. Multiple abdominal surgeries for removal of small intestine and colon. 2. Cholecystectomy. SOCIAL HISTORY: Former smoker. No alcohol or illicit drugs. Lives at [facility] in [place]. FAMILY HISTORY: Mother and father both had coronary artery disease, 3 brothers with coronary artery disease. ALLERGIES: No known drug allergies. HOME MEDICATIONS: 1. Vitamin D3 2000 units p.o. daily. 2. Uloric 80 mg p.o. daily. 3. Flomax 0.4 mg p.o. daily. 4. Omeprazole 40 mg p.o. daily. 5. Metoprolol 100 mg p.o. b.i.d. 6. Levothyroxine sodium 75 mcg p.o. daily. 7. Vitamin B12 1000 mg IM q.30 days. 8. Tylenol 325 p.o. q.4. 9. Milk of Magnesia 30 mL p.o. daily. 10.Mag oxide 800 mg p.o. b.i.d. 11.Potassium chloride 20 mEq p.o. t.i.d. 12.Lasix 20 mg p.o. daily. 13.Ferrous sulfate 325 mg p.o. daily. 14.Digoxin 250 mcg p.o. daily. 15.Eliquis 5 mg p.o. b.i.d. 16.MiraLAX 17 grams p.o. daily. 17.Mylanta q.4 p.r.n. 18.Robitussin q.4 p.r.n. 19.Reglan 2.5 mg p.o. b.i.d. REVIEW OF SYSTEMS: Fourteen point review of systems conducted with the patient. As noted, he did have some complaint of shortness of breath, complained of low back pain, had complaint of cough, fever and chills. Other pertinent positives listed above in the HPI. All other systems reviewed and found to be negative. PHYSICAL EXAMINATION: VITAL SIGNS: Temperature 99.9 degrees, pulse 117, respirations 20, blood pressure 144/91, oxygenation saturation 92% on room air. GENERAL: Chronically ill appearing 73-year-old male lying in the ER stretcher. He appears chronically ill. He is in no acute distress at this time. He is oriented to person, place and situation, disoriented to time. He is awake and alert. HEENT: Head is atraumatic, normocephalic. Pupils equal, round, reactive to light. Extraocular eye movements intact. Sclerae anicteric. Conjunctivae pink. Oral mucosa is mildly dry. NECK: Supple. No JVD. No thyromegaly. Trachea is midline. No cervical lymphadenopathy. CARDIAC: Irregularly irregular. S1, S2 appreciated. No murmurs, gallops, rubs. Mildly tachycardic. LUNGS: Decreased crepitations noted right greater than left. No wheezes. Symmetric rise and fall of respirations. ABDOMEN: Soft, nondistended, nontender. Bowel sounds present all 4 quadrants. Normoactive. No pulsatile mass. No organomegaly. EXTREMITIES: No cyanosis, clubbing or edema. 2+ pedal pulses bilaterally. BACK: Vertebral tenderness in lumbar spine. No CVA tenderness. NEUROLOGICAL: Alert and oriented x3. Questionable facial droop on the right side. I am unsure if this is chronic. The patient also seems to be somewhat slurring his speech in the examination. Again, I am unsure if this is chronic. Otherwise, cranial nerves 2-12 appear to be grossly intact. DIAGNOSTIC DATA: Chest x-ray, right lower lobe infiltrate. CT of the lumbar spine: Chronic changes. No evidence of acute fracture. CT of the head: No acute intracranial hemorrhage or process. Small extra-axillary area of intermediate density in the right frontal region which was somewhat worrisome for questionable epidural hematoma. LABORATORY DATA: WBC 7.27, hemoglobin 12.2, hematocrit 38.1, platelet count 143,000. INR 1.20. ABG, pH 7.51, PCO2 37, PO2 81, bicarb 29.7. This was on 5 L of nasal cannula. Sodium 134, potassium 3.6, chloride 92, carbon dioxide 12, creatinine 0.7, glucose 127. Urine unremarkable. ASSESSMENT AND PLAN: 1. Right lower lobe pneumonia. We will give Maxipime and then add on vancomycin as the patient is from the senior living. Blood cultures are pending as well as sputum cultures. 2. Influenza A. Tamiflu 75 mg p.o. b.i.d. 3. Altered mental status secondary to fall. Patient's CT scan was somewhat worrisome for questionable right frontal lobe epidural hematoma. We will order MRI tomorrow morning. Consult Dr. Perez with Neurology. 4. Atrial fibrillation with a rapid ventricular rate. Continue Lopressor 50 mg p.o. q.6. We will hold Eliquis at this time until epidural bleed is totally ruled out. 5. Hypothyroidism. Continue Synthroid. Check TSH. 6. History of diabetes mellitus type 2. Does not appear to be on medication at this point. His glucose is 127. We will check a hemoglobin A1c. Further recommendations per patient's clinical course. Dictated by МАРИЯ Lira for Andre Mathews MD cc: МАРИЯ Lira MD
--- NOTE | 2018-12-10 07:17 | Diag Imaging Result Doc PS360 ---
EXAM: CT HEAD W/O CONTRAST 12/10/2018 HISTORY: possible head injury, on anticoagulants/repeat for F/U TECHNIQUE: This exam was performed using automated exposure control, adjustment of mA or kV according to patient size, and/or use of iterative reconstruction technique. COMMENT: The area of dural thickening seen at the time the previous study of 12/09/2018 has not changed significantly. There are no earlier studies available for comparison. There is marked patchy subcortical and periventricular white matter hypodensity and multiple small lacunae are present in the basal ganglia and external capsule regions. This has not changed since the previous study. There is no evidence of mass effect or acute bleed. There are alison holes and changes of craniotomy with some dural calcification present in the right parietal bone which were also present at the time the previous study. There is opacification of most of the ethmoid air cells and diffuse mucosal thickening is present in both maxillary sinuses. There is apparent defect in the maxillary alveolar ridge slightly to the left of midline. There is debris occluding both external auditory canals. These findings were all present on the previous study. IMPRESSION: Postsurgical changes. 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 Pansinusitis. Electronically signed by Bill Judge 12/10/2018 7:14 AM
[2018-12-10 07:51] LABS: BASO# 0.01 X1000 (0.0-0.2); BASO% 0.2 % (0.0-0.8); EOS# 0.13 X1000 (0.0-0.7); EOS% 2.3 % (0.0-10.0); HEMATOCRIT 39.2 % (42.0-52.0); HEMOGLOBIN 12.6 g/dL (14.0-18.0); IMM GRAN# 0.02 X1000 (0.0-0.04); IMM GRAN% 0.3 % (0.0-0.5); LYMPH# 0.99 X1000 (1.2-3.4); LYMPH% 17.2 % (20.5-51.1); MCH 27.3 PG (27-31); MCHC 32.1 g/dL (33-37); MCV 84.8 FL (81-99); MONO# 1.31 X1000 (0.11-0.59); MONO% 22.7 % (1.7-9.3); MPV 10.9 FL (7.4-10.4); NEUT% 57.3 % (42.2-75.2); PLT 130 X1000 (130-400); RBC 4.62 XMIL (4.7-6.1); RDW 14.7 % (11.5-14.5); WBC 5.76 X1000 (4.8-10.8)
--- NOTE | 2018-12-10 07:51 | Diag Imaging Result Doc PS360 ---
EXAM: CHEST-2 VIEWS 12/09/2018 HISTORY: hx of CHF TECHNIQUE: AP upright sitting at 2223 COMMENT: The basilar opacity seen on the previous study of 09/23/2017 have improved. There still may be some atelectasis or pneumonia however. The possibility of interstitial pulmonary edema cannot be excluded. There is still cardiomegaly. IMPRESSION: Pulmonary edema and basilar atelectasis. Electronically signed by Bill Judge 12/10/2018 7:49 AM
[2018-12-10] MEDS ORDERED: VANCOMYCIN 1,600 MG in NS 250 ML IV ONE (08:00)
[2018-12-10 08:03] LABS: AGAP 13; ALB/GLOB RATIO 1.1; ALBUMIN 3.5 g/dL (3.5-5.0); ALKALINE PHOSPHATASE 63 U/L (32-122); BUN 10 mg/dL (8-22); CALCIUM 8.5 mg/dL (8.8-10.2); CHLORIDE 95 mmol/L (98-107); COSMO 269; CREATININE 0.7 mg/dL (0.7-1.2); ESTIMATED GFR > 60; GLUCOSE 126 mg/dL (70-104); GOT 18 U/L (10-34); GPT 10 U/L (10-44); POTASSIUM 3.4 mmol/L (3.5-5.1); SODIUM 134 mmol/L (136-145); TCO2 26 mmol/L (25-35); TOTAL BILIRUBIN 0.41 mg/dL (0.20-1.00); TOTAL PROTEIN 6.6 g/dL (6.3-8.3)
--- NOTE | 2018-12-10 08:07 | EKG Report ---
Test Performed on : 12/09/2018 8:55:47 PM Test Reason : A. Fib Blood Pressure : / mmHG Vent. Rate : 104 BPM Atrial Rate : 089 BPM P-R Int : 000 ms QRS Dur : 104 ms QT Int : 340 ms P-R-T Axes : 000 -58 079 degrees QTc Int : 447 ms Atrial fibrillation. with rapid ventricular response. Left axis deviation Minimal voltage criteria for LVH, may be normal variant Nonspecific ST abnormality Abnormal ECG When compared with ECG of 21-SEP-2017 06:01, ST no longer depressed in Anterior leads T wave inversion less evident in Anterolateral leads Unconfirmed Result
[2018-12-10 08:16] LABS: HEMOGLOBIN A1C 5.7 % (4.8-6.0)
--- NOTE | 2018-12-10 09:24 | Diag Imaging Result Doc PS360 ---
EXAM: MRI BRAIN W/WO CONTRAST 12/10/2018 HISTORY: fall, questionable hematoma TECHNIQUE: T1 sagittal, axial and post gadolinium-enhanced FSPGR axial with coronal reformation, axial T2, FLAIR, DWI and coronal gradient echo. COMMENT: There are no previous MRI studies available for comparison. There are numerous punctate foci of increased T2-weighted signal intensity present in the subcortical and periventricular white matter bilaterally. There is no evidence of bleed or abnormal extra-axial fluid collection. There is no evidence of restricted diffusion. The area of pleural thickening present over the right frontal region seen on the previous CT of 12/09 and 12/10/2018 has not changed significantly. There is mildly increased dural enhancement in this area with gadolinium. There is mucosal thickening in both maxillary sinuses with multiple mucous retention cysts. There is mucosal thickening throughout much of the ethmoid air cells. IMPRESSION: Focal dural thickening in the right frontal region. No definite evidence of acute bleed mass effect or abnormal enhancement. Chronic ischemic microvascular changes. Pansinusitis. Electronically signed by Bill Judge 12/10/2018 9:22 AM
[2018-12-10] MEDS: PRILOSEC PO SCH (10:44)
[2018-12-10] MEDS: FLOMAX PO SCH (10:46)
[2018-12-10] MEDS: VITAMIN D PO SCH (10:47)
[2018-12-10] MEDS: ULORIC PO SCH (10:48)
[2018-12-10] MEDS: MIRALAX PO SCH (10:48)
[2018-12-10] MEDS: REGLAN PO SCH ×2 (10:48→20:03)
[2018-12-10] MEDS: FERROUS SULFATE PO SCH (10:49)
[2018-12-10] MEDS: LASIX PO SCH (10:49)
--- NOTE | 2018-12-10 14:16 | CONSULTATION ---
DATE OF CONSULTATION: 12/10/2018 HISTORY OF PRESENT ILLNESS: Mr. Esqueda is 73 years old. History from attentive sister at the bedside is that Mr. Esqueda had learning difficulty. He dropped out of school in the fourth grade. He had "hair lip" with chronic speech impediment that is not any worse than baseline recently. He moved to the group home a few years ago. There is history of discovery of intracranial bleeding managed surgically in [place] a few years ago. Sister reports being told then that there was evidence of an old injury and additional new bleeding superimposed. She is not aware of any more recent head injury. She reports he did well after surgery, without definite focal neurologic deficit, and that he was walking better after surgery than before Mr. Esqueda reports he slipped out of bed yesterday morning at the group home and could not get himself up without assistance. He and sister report diagnosis of "the flu" and he believes he may have been weakened by flu and that is the reason he could not get himself up. According to sister, patient has walked with a walker for the last few years and has not walked unassisted in some time. She is not aware of other falls, but continued to report she wasn't sure there were or were not other falls. Workup here includes brain MRI done with and without contrast today showing focally thickened right frontal dura near area of previous craniotomy. There is no evidence of acute intracranial bleeding. Usual scattered micro ischemic changes are present, but there is no evidence of restricted diffusion or acute infarction. Lab work shows mild anemia, mildly elevated blood sugars, mild hypocalcemia and hypomagnesemia, but nothing that generally would be associated with encephalopathy or gait difficulty. His "home" medication list includes 19 entries including Eliquis, thyroid, metoclopramide 2.5 mg b.i.d. and no other dopamine blockers. On exam, Mr. Esqueda is supine, awake, alert, attentive. He seems appropriate. Speech is sometimes mumbled and hard to understand. Sister reports speech is at baseline. Language function is intact on bedside testing. I did not test his cognitive function thoroughly. There is full visual field tested grossly by confrontational finger counting. Extraocular movements are full. Facial motility is symmetric. He has some irregular, arrhythmic chewing movement (sister reports noticing this has become prominent in the last several months). Facial sensation is intact. Gag is intact. Tongue is midline. He can hear. Shoulder shrug is good bilaterally. Strength is normal in the arms and legs. He did well on [id number] testing bilaterally. I did not test his gait. Reflexes are absent at the ankles. He reports good sensation over the feet. IMPRESSION: 1. Imaging evidence of thickened right frontal dura consistent with prior subdural fluid collection and craniotomy management. There is no evidence of acute bleeding. 2. Facial movement consistent with tardive dyskinesia. I wonder if metoclopramide is playing a role. There may be another explanation and sister is not certain other medication was not recently stopped. 3. Baseline cognitive impairment, apparently low IQ, not clear that there has been any recent deterioration from baseline. 4. Possible gait difficulty. I was alone at the bedside and reluctant to check his gait in this setting. If he is to be admitted, physical therapy might be helpful. Depending on his clinical course, we might assess his gait more thoroughly after admission. In summary, I do not see any acute neurologic change. I do not have any urgent suggestion. I believe the imaging findings are old. Thanks for asking Neurology to see Mr. Esqueda. cc: Svetlana Perez III, MD [facility]ICAL CENTERKelly
[2018-12-11] MEDS: MAXIPIME 1 GM in NS 50 ML IV SCH ×2 (02:50→14:22)
[2018-12-11] MEDS: LOPRESSOR PO SCH ×4 (02:51→20:42)
[2018-12-11] MEDS: XOPENEX NEB INH SCH ×4 (03:05→21:15)
[2018-12-11] MEDS: PRILOSEC PO SCH (06:46)
[2018-12-11] MEDS: SYNTHROID PO SCH (06:47)
[2018-12-11 07:23] LABS: BASO# 0.02 X1000 (0.0-0.2); BASO% 0.3 % (0.0-0.8); EOS# 0.29 X1000 (0.0-0.7); EOS% 4.5 % (0.0-10.0); HEMATOCRIT 40.7 % (42.0-52.0); HEMOGLOBIN 12.9 g/dL (14.0-18.0); LYMPH# 1.13 X1000 (1.2-3.4); LYMPH% 17.5 % (20.5-51.1); MCHC 31.7 g/dL (33-37); MCV 85.1 FL (81-99); MONO# 1.27 X1000 (0.11-0.59); MONO% 19.7 % (1.7-9.3); MPV 11.2 FL (7.4-10.4); NEUT# 3.74 X1000 (1.4-6.5); PLT 125 X1000 (130-400); RBC 4.78 XMIL (4.7-6.1); RDW 14.7 % (11.5-14.5); WBC 6.45 X1000 (4.8-10.8)
[2018-12-11 07:47] LABS: AGAP 15; ALB/GLOB RATIO 0.8; ALBUMIN 3.1 g/dL (3.5-5.0); ALKALINE PHOSPHATASE 62 U/L (32-122); BUN 12 mg/dL (8-22); CALCIUM 8.5 mg/dL (8.8-10.2); CHLORIDE 94 mmol/L (98-107); COSMO 273; CREATININE 0.7 mg/dL (0.7-1.2); ESTIMATED GFR > 60; GLUCOSE 113 mg/dL (70-104); GOT 21 U/L (10-34); GPT 10 U/L (10-44); POTASSIUM 3.3 mmol/L (3.5-5.1); SODIUM 136 mmol/L (136-145); TCO2 27 mmol/L (25-35); TOTAL BILIRUBIN 0.54 mg/dL (0.20-1.00)
[2018-12-11] MEDS ORDERED: VANCOMYCIN 1,100 MG in NS 250 ML IV SCH (08:00)
[2018-12-11] MEDS: LASIX PO SCH (09:06)
[2018-12-11] MEDS: FLOMAX PO SCH (09:06)
[2018-12-11] MEDS: TAMIFLU PO SCH ×2 (09:06→20:42)
[2018-12-11] MEDS: FERROUS SULFATE PO SCH (09:06)
[2018-12-11] MEDS: VITAMIN D PO SCH (09:06)
[2018-12-11] MEDS: REGLAN PO SCH ×2 (09:06→20:42)
[2018-12-11] MEDS: MIRALAX PO SCH (09:07)
[2018-12-11] MEDS: ULORIC PO SCH (09:07)
[2018-12-11] MEDS ORDERED: KLOR-CON PO ONE (10:32)
[2018-12-11] MEDS: VANCOMYCIN 1,100 MG in NS 250 ML IV SCH (11:08)
--- NOTE | 2018-12-11 12:15 | PROGRESS NOTE ---
DATE: 12/11/2018 SUBJECTIVE: Mr. Esqueda is awake and alert this morning. He seems more attentive and is definitely more spontaneous during my interview than yesterday. OBJECTIVE: The involuntary circumoral movement is not as prominent right now. I do not see any other parkinsonian features on limited bedside exam. I reviewed history. I am not sure his report is valid, but he does not report recent head injury. His scan shows old changes with no evidence of acute bleeding. The dural thickening I believe is also chronic, related to prior history and management and not new. ASSESSMENT AND PLAN: I do not have any new suggestions today. Later, after he is at baseline, cholinesterase inhibitor trial could be considered. That will not be of definite benefit in a patient with baseline low IQ, but could help if there is some deterioration in cognitive function now compared to baseline. Also, if he can tolerate a trial off of metoclopramide, that could be considered. Thanks for asking Neurology to see Mr. Esqueda. cc: MD MELODY Fisher III
--- NOTE | 2018-12-11 14:20 | PROGRESS NOTE ---
DATE: 12/11/2018 SUBJECTIVE: Today Mr. Esqueda looked more alert and more communicating. He refers to be doing a lot better than yesterday. He is still coughing and does have some residual shortness of breath as well. OBJECTIVE: Vitals: Blood pressure is 144/83, pulse 74 respiration is 15 and temperature is 97.5 degrees. General: Mr. Jackson is a 79-year-old gentleman. He was in bed, did not seem to be in any cardiopulmonary distress. HEENT: Mucosa is pink and moist. Anicteric. Acyanotic. Neck: Supple. Chest: Air entry is bilaterally reduced. There is still some distant expiratory wheezing. No crackles. Cardiovascular: Regular rate and rhythm. No murmurs, no rubs, no gallops. Abdomen: Soft, nontender. Bowel sounds present. Extremities: No pedal edema. 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 Follows basic commands. Still has some nasal type of speech of phonetics. LABORATORY DATA: WBC is 6.45, hemoglobin is 12.9, platelet count of 125. Chemistry is also reviewed; potassium is 3.3, rest of chemistry is completely normal. IMAGING STUDIES: Including an MRI which was done yesterday did show a focal dural thickening in the right parietal frontal region, but there was no definite evidence of acute bleed or abnormal enhancement. There is also some chronic microvascular changes. ASSESSMENT: 1. Acute acute on chronic hypoxemic respiratory failure, improving. 2. Right lower lobe pneumonia. Patient is currently on antibiotics. 3. Influenza positive. Patient is on Tamiflu. 4. Altered mental status, improve. CT scan and MRI have been unremarkable for any acute pathology. 5. History of atrial fibrillation with rapid ventricular response on presentation, resolved. 6. Hypothyroidism with very low thyroid stimulating hormone consistent with drug-induced hyperthyroidism. We have add readjusted his thyroid medications. 7. Diabetes mellitus, controlled. 8. History of baseline cognitive impairment with chronic speech impediment noted. PLAN: So, in general, I think Mr. Esqueda is doing a lot better. Shortness of breath has significantly improved. Today is day 1 on IV antibiotics for the pneumonia. We will repeat a chest x-ray tomorrow morning and follow up accordingly. I think hopefully tomorrow if he continues to show progress, we will be able to discharge him on oral antibiotics. We are also going to replace his borderline low potassium. cc: Natan Rudolph MD
[2018-12-11] MEDS ORDERED: CALMOSEPTINE OINTMENT TOP PRN (15:51)
[2018-12-12] MEDS: MAXIPIME 1 GM in NS 50 ML IV SCH ×2 (02:17→15:18)
[2018-12-12] MEDS: LOPRESSOR PO SCH ×4 (02:17→21:45)
[2018-12-12] MEDS: XOPENEX NEB INH SCH ×4 (03:08→21:00)
[2018-12-12] MEDS: SYNTHROID PO SCH (06:41)
[2018-12-12] MEDS: PRILOSEC PO SCH (06:41)
[2018-12-12] MEDS: REGLAN PO SCH ×2 (08:36→21:44)
[2018-12-12] MEDS: ULORIC PO SCH (08:36)
[2018-12-12] MEDS: LASIX PO SCH (08:37)
[2018-12-12] MEDS: FERROUS SULFATE PO SCH (08:37)
[2018-12-12] MEDS: VITAMIN D PO SCH (08:37)
[2018-12-12] MEDS: FLOMAX PO SCH (08:38)
[2018-12-12] MEDS: TAMIFLU PO SCH ×2 (08:38→21:44)
[2018-12-12] MEDS: NS NEB INH SCH ×2 (09:28→16:15)
[2018-12-12] MEDS: VANCOMYCIN 1,100 MG in NS 250 ML IV SCH (11:26)
--- NOTE | 2018-12-12 22:57 | PROGRESS NOTE ---
DATE: 12/12/2018 SUBJECTIVE: This morning, Mr. Esqueda referred to be doing fairly okay. Denies any shortness of breath. No chest pain. Per the nursing staff, there were no acute changes overnight. OBJECTIVE: Vital Signs: Blood pressure is 129/73, pulse is 79, respirations 18, temperature is 98.2 degrees. The patient was saturating 99% on 2 L of nasal cannula. General: Mr. Esqueda is a 73-year-old male. He is in bed. He is not in any cardiopulmonary distress. HEENT: Mucosa is pink and moist. Anicteric. Acyanotic. Neck: Supple. Chest: Air entry was bilaterally reduced. There is still some distant end expiratory wheezing, but no rhonchi, no crackles. Cardiovascular: Regular rate and rhythm. No murmurs, no rubs, no gallops. GI: Abdomen is soft, nontender. No hepatosplenomegaly. Extremities: No pedal edema. Distal pulses present. 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 Follows basic commands. LABORATORY DATA: None for today. CURRENT MEDICATIONS: 1. Cefepime 1 g q.12. Today is day 2 on that. 2. Vancomycin, also on day 2. 3. Tamiflu, day 2. The rest of the other medications for stable comorbidities are being reviewed. ASSESSMENT: 1. [id number] hypoxemic respiratory failure. Patient is back to 2 L of nasal cannula, which is what he normally takes at home. 2. Right lower lobe pneumonia. The patient is on IV antibiotics. He seems to be doing a lot better. 3. Influenza A positive. The patient is on Tamiflu. 4. Altered mental status on presentation, improved. Both CT scan and MRI are unremarkable for any acute pathology. 5. History of atrial fibrillation with RVR on presentation, resolved. 6. Hypothyroidism, with low TSH, consistent with drug-induced hyperthyroidism. There has been some readjustment to his thyroid supplementation. 7. Diabetes mellitus, controlled. 8. History of cognitive and chronic speech impairment noted. 9. Resident of [facility]. PLAN: In general Mr. Esuqeda is a lot better. He could be potentially be discharged today. However, he is from a longterm, so will have to wait until Friday. We will continue with the current antibiotics and the bronchodilation therapy, and re-evaluate him in the morning. cc: Natan Rudolph MD
[2018-12-13] MEDS: LOPRESSOR PO SCH ×4 (01:21→21:13)
[2018-12-13] MEDS: MAXIPIME 1 GM in NS 50 ML IV SCH ×2 (01:21→16:43)
[2018-12-13] MEDS: XOPENEX NEB INH SCH ×4 (03:08→22:18)
[2018-12-13] MEDS: PRILOSEC PO SCH (06:39)
[2018-12-13] MEDS: SYNTHROID PO SCH (06:39)
[2018-12-13] MEDS: NS NEB INH SCH ×2 (09:00→15:17)
[2018-12-13] MEDS: FERROUS SULFATE PO SCH (09:02)
[2018-12-13] MEDS: VITAMIN D PO SCH (10:56)
[2018-12-13] MEDS: LASIX PO SCH (10:56)
[2018-12-13] MEDS: REGLAN PO SCH ×2 (10:56→21:13)
[2018-12-13] MEDS: ULORIC PO SCH (10:57)
[2018-12-13] MEDS: TAMIFLU PO SCH ×2 (10:57→21:13)
[2018-12-13] MEDS: FLOMAX PO SCH (10:57)
[2018-12-13] MEDS: VANCOMYCIN 2 GM in NS 500 ML IV SCH (13:02)
--- NOTE | 2018-12-13 13:25 | PROGRESS NOTE ---
DATE: 12/13/2018 SUBJECTIVE: This morning Mr. Esqueda referred to be doing fairly okay. Denies any acute complaints. Per the nursing staff, night was uneventful. OBJECTIVE: Vital Signs: The patient's vitals: Blood pressure is 137/72, pulse is 73, respiration is 18, temperature is 98.0 degrees. The patient is saturating 99% on 2 L of nasal cannula. General exam: Mr. Esqueda is a 73-year-old male. He is in bed, no distress. HEENT: Mucosa is pink and moist. Anicteric. Acyanotic. Neck: Neck is supple. Chest: Good air entry bilaterally. There is still some end expiratory wheezing. No rhonchi. Cardiovascular: Regular rate and rhythm. No murmurs, no rubs, no gallops. GI: Abdomen is soft, nontender. Bowel sounds present. Extremities: No pedal edema. Distal pulses present. STUNNER: Patient is awake, alert, follows some basic commands. Does have a baseline cognitive decline. LABORATORY DATA: None for today. CURRENT MEDICATIONS: Have all been reviewed. ASSESSMENT: 1. Acute on chronic hypoxemic respiratory failure. Patient is back to 2 liters of nasal cannula, his baseline. 2. Right lower lobe pneumonia. Currently improving. The patient is on intravenous antibiotics, namely vancomycin and cefepime. Today is day 3 on antibiotics. 3. Influenza A positive. We will continue with Tamiflu for a total of 5 days. 4. Altered mental status on presentation secondary to infectious encephalopathy, improved. 5. History of atrial fibrillation with rapid ventricular response on presentation, resolved. 6. Hypothyroidism noted. We will continue with the readjusted dose for his thyroid supplementation. 7. Diabetes mellitus is controlled. 8. History of cognitive and chronic speech impairment. The patient is a resident of [facility]. PLAN: So, in general, I think Mr. Esqueda is back to his baseline. We will continue with the current management. He will need a total of 5 days of Tamiflu and a total of 7 days of antibiotics. Hopefully, we can transfer him back to the senior living tomorrow. cc: Natan Rudolph MD
[2018-12-14] MEDS: MAXIPIME 1 GM in NS 50 ML IV SCH ×2 (02:32→16:15)
[2018-12-14] MEDS: LOPRESSOR PO SCH ×3 (02:33→16:15)
[2018-12-14] MEDS: XOPENEX NEB INH SCH ×3 (03:49→15:34)
[2018-12-14] MEDS: SYNTHROID PO SCH (06:07)
[2018-12-14] MEDS: PRILOSEC PO SCH (06:07)
--- NOTE | 2018-12-14 07:04 | Diag Imaging Result Doc PS360 ---
EXAM: CHEST-PORTABLE HISTORY: dyspnea TECHNIQUE: Portable chest single view COMPARISON: 08/08/2019 FINDINGS: The heart is enlarged and there is pulmonary edema. No pleural effusions identified. No consolidation although there is atelectasis or small infiltrates in the right lung base. IMPRESSION: No interval improvement. Electronically signed by Walter Mcclellan 12/14/2018 7:02 AM
[2018-12-14] MEDS: ULORIC PO SCH (08:29)
[2018-12-14] MEDS: FERROUS SULFATE PO SCH (08:29)
[2018-12-14] MEDS: REGLAN PO SCH (08:29)
[2018-12-14] MEDS: VITAMIN D PO SCH (08:29)
[2018-12-14] MEDS: TAMIFLU PO SCH (08:29)
[2018-12-14] MEDS: FLOMAX PO SCH (08:29)
[2018-12-14] MEDS: LASIX PO SCH (08:30)
--- NOTE | 2018-12-14 12:52 | DISCHARGE SUMMARY ---
ADMISSION DATE: 12/10/2018 DISCHARGE DATE: 12/14/2018 DISPOSITION: [facility]. FOLLOW-UP: Will be with the medical staff at the senior care. ADMISSION DIAGNOSES: 1. Right lower lobe pneumonia. 2. Influenza A. 3. Altered mental status. 4. Atrial fibrillation with rapid ventricular response. 5. Hypothyroidism. 6. Diabetes. DISCHARGE DIAGNOSES: 1. Acute on chronic hypoxemic respiratory failure on presentation. Improved. Patient is back to his baseline 2 L of nasal cannula. 2. Altered mental status on presentation secondary to infectious encephalopathy, resolved. 3. Right lower lobe pneumonia, improved. The patient will continue with Augmentin for a total of 10 days. 4. Influenza A positive. The patient is on Tamiflu for a total of 5 days. 5. History of atrial fibrillation with rapid ventricular rate on presentation, resolved. 6. Hypothyroidism. We will continue the patient on his thyroid supplementation. The dose was readjusted during the hospital course. 7. Diabetes mellitus with presenting A1c of 5.7. 8. Long-standing cognitive and chronic speech impairment, noted. 9. Resident of a senior care. DISCHARGE MEDICATIONS: 1. Cholecalciferol 2000 units p.o. daily. 2. Febuxostat 80 mg daily. 3. Tamsulosin 0.4 mg daily. 4. Omeprazole 40 mg daily. 5. Lopressor 100 mg b.i.d. 6. Levothyroxine 75 mcg daily. 7. Furosemide 20 mg daily. 8. Digoxin 250 p.o. daily. 9. Eliquis 5 mg b.i.d. 10. Doxycycline 100 mg b.i.d. 11. Prednisone 20 mg daily. 12. Tamiflu 75 mg b.i.d. for 2 additional days. PRESENTING COMPLAINT: Fall. HISTORY OF PRESENTING COMPLAINT: Mr. Esqueda is a 73-year-old, male, who is a resident of a senior care. He is on chronic O2 at home. He came to the emergency department because of fall, cough and generalized weakness. Upon presenting, the patient was evaluated. Was found to be hypoxemic. A chest x-ray revealed right lower lobe infiltrate. Influenza serology was positive. Patient was admitted for further medical care. HOSPITAL COURSE: Mr. Esqueda was admitted to the medical floor, adequately hydrated and started on IV antibiotics. Was put in droplet isolation and started also on Tamiflu. Neurology was consulted. Patient was seen by Dr. Perez. During the hospital course, Mr. Esqueda continued to improve from the respiratory standpoint. A repeat chest x-ray done continues to show some atelectasis and small infiltrate in the right lung base. The patient is advised to continue p.o. antibiotics for a total of 10 days for the pneumonia treatment. He is also going to finish the Tamiflu therapy for 5 days. This morning, Mr. Esqueda is fairly stable. No new complaints. He is therefore stable for discharge. Other discharge instructions have been discussed with him and he voices understanding. He is medically stable for discharge. TIME SPENT: For discharge is 36 minutes. cc: MD Svetlana White III, MD
[2018-12-14 14:18] VITALS: BP 128/87
[2018-12-14] MEDS: VANCOMYCIN 2 GM in NS 500 ML IV SCH (16:15)
== END 2018-12-14 18:49 | DRG 177 ==
LOC: ED 17:42 → SUATTDRO 12-10 01:52 → 4N 12-10 01:52 → INTOOBSV 12-10 01:52 → EDIPHOLD 12-10 02:35 → 3N 12-10 14:33
PROVIDERS: ATTEND Internal Medicine
CPT/HCPCS: 51701; 70450; 70553; 71010; 71020; 71045; 71046; 72125; 72131; 73522; 80053; 80202; 81001; 82805; 83036; 83735; 84443; 84484; 85025; 85610; 85730; 87088; 87275; 87276; 87324; 87804; 93005; 94640; 94761; 96365; 96366; 96367; 96375; 99285; A9270; A9579; J0692; J0696; J3370; J7030; J7040; J7050; P9612